=== PATIENT | male | born 1980 | race Caucasian/White ===

== ENCOUNTER 2018-05-31 07:20 | Day surgery (SDC) | payer BC ==
[~2018-05-31 07:20] MED LIST: ACETAMINOPHEN 1,000 MG/100 ML BTL IV ONE; CEFAZOLIN 2 Gram 2 GM/50 ML BAG IVPB ONE
[2018-05-31] MEDS ORDERED: KETOROLAC 30 MG/ML VIAL IVP ONE (07:21)
[2018-05-31] MEDS ORDERED: SEVOFLURANE 250 ML INH ONE (07:21)
[2018-05-31] MEDS ORDERED: PROPOFOL 10 MG/ML VIAL IV ONE (07:21)
[2018-05-31] MEDS ORDERED: BUPIVACAINE 0.5% W/EPI MPF 30 ML VIAL IVP ONE (07:21)
[2018-05-31] MEDS ORDERED: MIDAZOLAM HCL 2MG/2ML VIAL IV ONE (07:21)
[2018-05-31] MEDS ORDERED: METHYLPREDNISOLONE 40MG/VIAL IM ONE (07:21)
[2018-05-31] MEDS ORDERED: LIDOCAINE 2% MDV (20MG/ML) 20ML VIAL IV ONE (07:21)
[2018-05-31] MEDS ORDERED: KETAMINE HCL 100MG/1ML VIAL INJ ONE (07:21)
[2018-05-31] MEDS ORDERED: MORPHINE SULFATE 4 MG/ML VIAL ONE (08:36)
--- NOTE | 2018-06-01 08:30 | Operative Note ---
DATE OF SURGERY: 05/31/2018 PREOPERATIVE DIAGNOSIS: Internal derangement of the right knee. POSTOPERATIVE DIAGNOSES: 1. Diffuse synovitis. 2. Grade 3 chondromalacia of the patella. 3. Grade 3 chondromalacia of the notch. 4. Grade 3 chondromalacia of the medial femoral condyle. OPERATION: 1. Right knee arthroscopy with synovectomy. 2. Right knee arthroscopy and chondroplasty of the medial and patellofemoral compartments. Staff Surgeon: Harman Deluna MD Anesthesia: General. Preparation: Chloraprep. Individual Considerations: None. PROCEDURE: The patient was taken to the operating room and placed supine on the operating room table. The patient had a successful induction with general anesthetic. The right lower extremity was prepped and draped in the usual fashion. The patient had a superolateral inflow cannula placed. Skin was infiltrated with 0.5% Marcaine with epinephrine prior. A stab wound was made and a blunt-tipped trocar for the inflow was placed and a clear effusion was drained. The knee was inflated with normal saline. An inferomedial and an inferolateral portal were made in a similar fashion. The arthroscope was introduced through the inferolateral portal up into the pouch. Diffuse synovitis was seen in the pouch in both gutters, and this was debrided out with a shaver. The notch had grade 3 changes primarily in the medial facet of patella which was smoothed off with a shaver. The notch had loose marginal cartilage at the periphery with fiber cartilage centrally, and this was debrided with a shaver. Medial compartment showed a large ulcer on the medial femoral condyle with a large unstable flap centered at about 45 degrees just medial to the midline. This was smoothed off with a shaver. Tibial plateau and meniscus were intact. The cruciates were normal centrally in the notch and laterally, the lateral compartment structures were normal. The knee was irrigated out with saline to remove loose floating debris. Portals were closed with keke, and 20 mL of 0.25% plain Marcaine along with 4 mg of morphine and 80 mg of Depo-Medrol were injected into the knee. A sterile bulky compressive dressing was applied. The patient tolerated procedure well. Needle and sponge counts were correct. Estimated blood loss was minimal. He was taken back to recovery in good condition. There were no complications. EDIE
== END 2018-05-31 11:19 | disposition home or self-care (01) ==
LOC: SUR 07:20
PROVIDERS: ATTEND Orthopaedic Surgery
DX: M94.261 Chondromalacia, right knee (principal); G47.33 Obstructive sleep apnea (adult) (pediatric); E66.9 Obesity, unspecified
CPT/HCPCS: J1030; J1885; J2270; J3490